=== PATIENT | female | born 2000 | race Caucasian/White ===

== ENCOUNTER 2024-02-21 11:56 | Emergency (ER) | payer OTHER ==
[~2024-02-21] VITALS: Ht 154.9 cm; Wt 68.0 kg
[2024-02-21 12:11] VITALS: BP 82/50
[2024-02-21 12:16] VITALS: BP 98/38
[2024-02-21 12:19] VITALS: BP 105/71
[2024-02-21] MEDS ORDERED: SULFAMETHOXAZOLE W/TRIMETHOPRI 1 COMBO TAB PO ONE (12:45)
[2024-02-21] MEDS ORDERED: CEPHALEXIN MONOHYDRATE 500 MG/CAP PO ONE (12:45)
[2024-02-21 13:46] VITALS: BP 91/75
[2024-02-21 14:01] VITALS: BP 96/59
[2024-02-21] MEDS ORDERED: BACTRIM DS1 TAB PO (14:43)
[2024-02-21] MEDS ORDERED: CEPHALEXIN500 MG PO (14:43)
[2024-02-21 15:00] VITALS: BP 107/68
[2024-02-21] MEDS ORDERED: NYSTATI1 TOP (15:14)
== END 2024-02-21 15:05 | disposition home or self-care (01) | DRG 776 ==
LOC: ED 11:56
DX: O90.0 Disruption of cesarean delivery wound (principal); O86.01 Infection of obstetric surgical wound, superficial incisional site; L03.311 Cellulitis of abdominal wall